=== PATIENT | female | born 1965 | race Caucasian/White ===

== ENCOUNTER 2017-04-07 12:21 | Emergency (ER) | payer SELFPAY ==
[~2017-04-07] VITALS: Ht 180.3 cm; Wt 98.0 kg
--- NOTE | 2017-04-07 12:21 | NUR ---
STATES " MY BLOOD SUGAR IS HIGH" 427 2 HRS AGO. STOPPED TAKING METFORMIN PER PATIENT. NAD NOTED. PT AAO X4, AMB WITH STEADY GAIT. RR EVEN AND UNLABORED. DR YARBROUGH AT BEDSIDE FOR EVAL.
--- NOTE | 2017-04-07 12:54 | NUR ---
BS 467 AT BEDSIDE
[2017-04-07 13:29] LABS: BASOPHILS % (AUTO) 0.3 % (0.0-2.0); EOSINOPHILS # (AUTO) 0.1 /CMM (0.0-0.7); EOSINOPHILS % (AUTO) 0.7 % (0.0-6.0); HEMATOCRIT 44 % (33-45); LYMPHOCYTES # (AUTO) 2.6 /CMM (0.8-4.8); MEAN CORPUSCULAR HEMOGLOBIN 31 PG (26.0-33.0); MEAN CORPUSCULAR HGB CONC 34 g/dl (31.0-36.0); MEAN CORPUSCULAR VOLUME 90 fL (82-100); MONOCYTES # (AUTO) 0.5 /CMM (0.1-1.30); MONOCYTES % (AUTO) 5.8 % (2.0-12.0); NEUTROPHILS # (AUTO) 5.4 /CMM (1.8-8.9); NEUTROPHILS % (AUTO) 63.2 % (43.0-81.0); PLATELET COUNT (AUTO) 225 /CMM (150-450); RDW COEFFICIENT OF VARIATION 12.8 (11.5-15.0); RED BLOOD CELL COUNT(AUTO) 4.87 MIL/uL (4.0-5.2); WHITE BLOOD COUNT (AUTO) 8.6 K/uL (4.3-11.0)
[2017-04-07] MEDS ORDERED: IV NS 0.9% 1,000 ML BAG IV ONE ×2 (13:30)
[2017-04-07 13:31] LABS: APPEARANCE,URINE CLEAR (CLEAR); BILIRUBIN,URINE NEGATIVE (NEGATIVE); BLOOD, URINE NEGATIVE Ery/uL (NEGATIVE); COLOR,URINE YELLOW (YELLOW); KETONES,URINE NEGATIVE (NEGATIVE); LEUKOCYTE ESTERASE ,URINE NEGATIVE (NEGATIVE); NITRITE, URINE NEGATIVE (NEGATIVE); PROTEIN,URINE NEGATIVE (NEGATIVE); UGLUCOSE 3+ mg/dL (NEGATIVE); UROBILINOGEN,URINE 0.2 EU/dL (0.2)
[2017-04-07 13:35] LABS: BACTERIA,URINE Rare /HPF (None Seen); RBC,URINE 0-2 /HPF (0-2); SQUAMOUS EPITHELIAL CELL,UR 0-2 /HPF (None Seen); WBC,URINE 0-2 /HPF (0-3)
[2017-04-07 13:36] LABS: PREGNANCY TEST URINE QUAL NEGATIVE (NEGATIVE)
[2017-04-07 13:36] LABS: POTASSIUM 3.8 mmol/L (3.5-5.1)
[2017-04-07 13:37] LABS: CALCIUM, SERUM 9.3 mg/dL (8.5-10.1)
[2017-04-07 13:40] LABS: BILIRUBIN,DIRECT 0.2 mg/dL (0.0-0.2); BILIRUBIN,TOTAL 0.8 mg/dL (0.2-1.0)
[2017-04-07 13:41] LABS: TOTAL PROTEIN, SERUM 7.6 g/dL (6.4-8.2)
[2017-04-07] MEDS ORDERED: INSULIN ASPART HUMALOG/NOVOLOG 100 UNIT/ML CARTRIDGE SQ ONE (14:00)
--- NOTE | 2017-04-07 14:08 | NUR ---
called pharmacy for miguelina
--- NOTE | 2017-04-07 14:17 | NUR ---
per dr colby dc pt after fluid bolus.
[2017-04-07 14:22] VITALS: BP 137/68
--- NOTE | 2017-04-07 15:08 | NUR ---
Patient discharged to home in stable condition. Written and verbal after care instructions given. Patient verbalizes understanding of instruction. IV removed. Catheter intact and site benign. Pressure and 4x4 applied to site. No bleeding noted. bs currently 380, improved from previous accucheck. ok per md to dc back home, pt states relief. prescriptions given, no further complaints.
== END 2017-04-07 15:08 | disposition home or self-care (01) ==
LOC: ER 12:26
DX: E11.65 Type 2 diabetes mellitus with hyperglycemia (principal); I10 Essential (primary) hypertension
CPT/HCPCS: 36415; 80048; 80076; 81001; 82962 ×2; 83690; 84703; 85025; 96372; 99285; A4606; J1815; J7030 ×3; Z7610; 81000-TC

== ENCOUNTER 2019-07-21 13:01 | Emergency (ER) | payer MEDICAID ==
[~2019-07-21] VITALS: Ht 180.3 cm; Wt 98.4 kg
--- NOTE | 2019-07-21 13:08 | NUR ---
"[id number] FROM [place] C/O DEPRESSION. SI +PLAN TO JUMP OFF A BRIDGE" PT TO BED15, AWAKE AND ALERT, -SOB, NAD NOTED, PENDING MD NIX
--- NOTE | 2019-07-21 13:18 | NUR ---
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
[2019-07-21 13:26] LABS: BASOPHILS # (AUTO) 0.1 /CMM (0.0-0.2); EOSINOPHILS % (AUTO) 0.6 % (0.0-6.0); HEMATOCRIT 47 % (33-45); HEMOGLOBIN 15.8 g/dL (11.5-14.8); LYMPHOCYTES # (AUTO) 3.1 /CMM (0.8-4.8); LYMPHOCYTES % (AUTO) 27.9 % (20.0-44.0); MEAN CORPUSCULAR HGB CONC 34 g/dl (31.0-36.0); MEAN CORPUSCULAR VOLUME 90 fL (82-100); MONOCYTES # (AUTO) 0.6 /CMM (0.1-1.30); MONOCYTES % (AUTO) 5.7 % (2.0-12.0); NEUTROPHILS # (AUTO) 7.1 /CMM (1.8-8.9); NEUTROPHILS % (AUTO) 64.8 % (43.0-81.0); PLATELET COUNT (AUTO) 359 /CMM (150-450); RED BLOOD CELL COUNT(AUTO) 5.15 MIL/uL (4.0-5.2)
--- NOTE | 2019-07-21 13:28 | NUR ---
PT WANDED. BELONGINGS PLACED IN SAFE LOCKER.
[2019-07-21 13:31] LABS: CALCIUM, SERUM 9.4 mg/dL (8.5-10.1); CARBON DIOXIDE 26 mmol/L (21-32); CHLORIDE 102 mmol/L (98-107); CREATININE 0.8 mg/dL (0.6-1.3); GLUCOSE 184 mg/dL (74-106); POTASSIUM 3.4 mmol/L (3.5-5.1); SODIUM SERUM 140 mmol/L (136-145); UREA NITROGEN, BLOOD 13 mg/dL (7-18)
[2019-07-21 13:37] LABS: ALANINE AMINOTRANSFERASE 29 U/L (12-78); ALBUMIN 4.4 g/dL (3.4-5.0); ALCOHOL, BLOOD < 3 mg/dL (0-0); ALKALINE PHOSPHATASE 74 U/L (46-116); ASPARTATE AMINOTRANSFERASE 26 U/L (15-37); BILIRUBIN,DIRECT 0.2 mg/dL (0.0-0.2); BILIRUBIN,TOTAL 0.8 mg/dL (0.2-1.0); TOTAL PROTEIN, SERUM 8.6 g/dL (6.4-8.2)
[2019-07-21 13:38] LABS: ACETAMINOPHEN 0 ug/ml (10-30); SALICYLATE 1.6 mg/dL (2.8-20.0)
[2019-07-21 13:47] LABS: APPEARANCE,URINE Slightly Cloudy (CLEAR); BILIRUBIN,URINE Negative (NEGATIVE); BLOOD, URINE Trace-intact Ery/uL (NEGATIVE); COLOR,URINE Yellow (YELLOW); KETONES,URINE 15 (NEGATIVE); LEUKOCYTE ESTERASE ,URINE Moderate (NEGATIVE); NITRITE, URINE Negative (NEGATIVE); PROTEIN,URINE Negative (NEGATIVE); UGLUCOSE Negative (NEGATIVE)
[2019-07-21 13:57] LABS: BACTERIA,URINE Moderate /HPF (None Seen); WBC,URINE 50-80 /HPF (0-3)
[2019-07-21 13:58] LABS: SQUAMOUS EPITHELIAL CELL,UR Moderate /HPF (None Seen)
--- NOTE | 2019-07-21 15:37 | NUR ---
FAXED CLINCALS AND FACESHEET TO [facility] AT [facility].
--- NOTE | 2019-07-21 16:26 | NUR ---
SPOKED TO [facility] [employer] PT INSURANCE NOT CONTRACTED.
--- NOTE | 2019-07-21 16:36 | NUR ---
CALLED [facility] [place], WAITING FOR CALL BACK.
--- NOTE | 2019-07-21 17:22 | NUR ---
SPOKE TO ART AT [facility], FAXED THE CLINICALS AND FACESHEET. WAITING FOR CONFIRMATION.
--- NOTE | 2019-07-21 17:54 | NUR ---
PATIENT ACCEPTED AT [facility] # FOR REPORT [phone] CALL NURSING JOSE ANTUNEZ FOR REPORT
--- NOTE | 2019-07-21 18:01 | NUR ---
REPORT GIVEN TO TULIO AT [facility]. AWAITING PT TRANSPORT.
--- NOTE | 2019-07-21 18:15 | NUR ---
ARRANGED BLS TRANSPORT TO [facility], TRIP NUMBER: [id number]
[2019-07-21 18:21] VITALS: BP 130/78
--- NOTE | 2019-07-21 19:32 | NUR ---
PT TRANSPORTED TO [facility], DENIES SOB, NAD NOTED, PT LEFT IN STABLE CONDITION, VSS.ALL BELONGING WITH PT
== END 2019-07-21 19:35 ==
LOC: ER 13:03
DX: F32.9 Major depressive disorder, single episode, unspecified (principal); I10 Essential (primary) hypertension; E11.9 Type 2 diabetes mellitus without complications; F17.200 Nicotine dependence, unspecified, uncomplicated; Z59.0 Homelessness
CPT/HCPCS: 36415; 80048; 80076; 80305; 80307; 80329; 81001; 85025; 87086; 99285; G0480; 81000-TC

== ENCOUNTER 2021-06-16 16:06 | Emergency (ER) | payer MEDICAID ==
[~2021-06-16] VITALS: Ht 180.3 cm; Wt 96.2 kg
--- NOTE | 2021-06-16 16:50 | NUR ---
TO ER BED 7, C/O FLANK PAIN AND DYSURIA X1WEEK, AAOX3, BREATHING EVEN AND NON LABORED, CONNECTED TO MONITOR, SALINE LOCK ESTABLISHED, BLOOD DRAWNA AND SENT TO LAB
[2021-06-16] MEDS ORDERED: IV NS 0.9% 1,000 ML BAG IV ONE (17:00)
[2021-06-16] MEDS ORDERED: ONDANSETRON HCL/PF 4 MG/2 ML VIAL IVP ONE (17:00)
[2021-06-16] MEDS ORDERED: KETOROLAC TROMETHAMINE INJ 30 MG/ML VIAL IV ONE (17:00)
[2021-06-16] MEDS ORDERED: ONDANSETRON HCL/PF 4 MG/2 ML VIAL ONE (17:17)
[2021-06-16] MEDS ORDERED: KETOROLAC TROMETHAMINE INJ 30 MG/ML VIAL ONE (17:17)
[2021-06-16 17:31] LABS: BILIRUBIN,URINE NEGATIVE (NEGATIVE); COLOR,URINE YELLOW (YELLOW); LEUKOCYTE ESTERASE ,URINE SMALL (NEGATIVE); NITRITE, URINE NEGATIVE (NEGATIVE); PROTEIN,URINE NEGATIVE (NEGATIVE); UGLUCOSE NEGATIVE (NEGATIVE); UROBILINOGEN,URINE 0.2 EU/dL (0.2)
[2021-06-16 17:38] LABS: BASOPHILS # (AUTO) 0.1 K/uL (0.0-0.2); BASOPHILS % (AUTO) 0.7 % (0.0-2.0); EOSINOPHILS % (AUTO) 1.9 % (0.0-6.0); HEMATOCRIT 41 % (33-45); LYMPHOCYTES # (AUTO) 4.2 K/uL (0.8-4.8); MEAN CORPUSCULAR HGB CONC 34 g/dl (31.0-36.0); MEAN CORPUSCULAR VOLUME 92 fL (82-100); MONOCYTES # (AUTO) 0.6 K/uL (0.1-1.30); MONOCYTES % (AUTO) 6.9 % (2.0-12.0); NEUTROPHILS # (AUTO) 3.8 K/uL (1.8-8.9); NEUTROPHILS % (AUTO) 43.5 % (43.0-81.0); PLATELET COUNT (AUTO) 259 K/uL (150-450); RED BLOOD CELL COUNT(AUTO) 4.49 MIL/uL (4.0-5.2); WHITE BLOOD COUNT (AUTO) 8.8 K/uL (4.3-11.0)
[2021-06-16 17:40] LABS: BACTERIA,URINE 1+ /HPF (None Seen); RBC,URINE 0-2 /HPF (0-2)
[2021-06-16 17:44] LABS: CALCIUM, SERUM 8.7 mg/dL (8.5-10.1); CREATININE 0.7 mg/dL (0.6-1.3); POTASSIUM 3.6 mmol/L (3.5-5.1)
[2021-06-16 17:49] LABS: ALBUMIN 4.1 g/dL (3.4-5.0); BILIRUBIN,DIRECT 0.1 mg/dL (0.0-0.2); BILIRUBIN,TOTAL 0.5 mg/dL (0.2-1.0); TOTAL PROTEIN, SERUM 7.9 g/dL (6.4-8.2)
[2021-06-16] MEDS ORDERED: CEFTRIAXONE 1GM BAG (ER ONLY) 1 GM/50 ML PIGGYBACK IV ONE (18:00)
[2021-06-16] MEDS ORDERED: CEFTRIAXONE 1GM BAG (ER ONLY) 50 ML IV ONE (18:05)
[2021-06-16] MEDS ORDERED: POLY17PO4 PO (18:39)
[2021-06-16] MEDS ORDERED: CEPH500C2 PO (18:39)
[2021-06-16] MEDS ORDERED: IBUP-1957 PO (18:39)
[2021-06-16 19:07] VITALS: BP 113/78
--- NOTE | 2021-06-16 19:07 | NUR ---
IV removed. Catheter intact and site benign. Pressure and 4x4 applied to site. No bleeding noted.Patient discharged to home in stable condition. Written and verbal after care instructions given. Patient verbalizes understanding of instruction.
== END 2021-06-16 19:08 | disposition home or self-care (01) ==
LOC: ER 16:11
DX: N39.0 Urinary tract infection, site not specified (principal); K59.00 Constipation, unspecified; I10 Essential (primary) hypertension; E11.9 Type 2 diabetes mellitus without complications; F17.200 Nicotine dependence, unspecified, uncomplicated; Z88.6 Allergy status to analgesic agent
CPT/HCPCS: 36415; 74176; 80048; 80076; 81001; 85025; 87077; 87086; 87186; 96361; 96374; 96375; 99284; J0696; J1885; J2405; J7030

== ENCOUNTER 2021-08-18 18:02 | Emergency (ER) | payer MEDICAID ==
[~2021-08-18] VITALS: Ht 172.7 cm; Wt 83.9 kg
[~2021-08-18 18:02] MED LIST: CEPH500C2 PO; IBUP-1957 PO; POLY17PO4 PO
--- NOTE | 2021-08-18 19:15 | NUR ---
LUIS FROM FOR [facility]. DENIED SI/HI. ALERT, AND OX4. AMBULATORY TO BED 15. VSS. WILL CONT TO MONITOR,
[2021-08-18 20:50] LABS: BASOPHILS # (AUTO) 0.1 K/uL (0.0-0.2); BASOPHILS % (AUTO) 0.8 % (0.0-2.0); EOSINOPHILS % (AUTO) 0.7 % (0.0-6.0); HEMATOCRIT 41 % (33-45); HEMOGLOBIN 13.9 g/dL (11.5-14.8); LYMPHOCYTES # (AUTO) 3.8 K/uL (0.8-4.8); LYMPHOCYTES % (AUTO) 32.6 % (20.0-44.0); MEAN CORPUSCULAR HGB CONC 34 g/dl (31.0-36.0); MEAN CORPUSCULAR VOLUME 91 fL (82-100); MONOCYTES # (AUTO) 0.8 K/uL (0.1-1.30); MONOCYTES % (AUTO) 6.5 % (2.0-12.0); NEUTROPHILS # (AUTO) 6.9 K/uL (1.8-8.9); NEUTROPHILS % (AUTO) 59.4 % (43.0-81.0); PLATELET COUNT (AUTO) 286 K/uL (150-450); RED BLOOD CELL COUNT(AUTO) 4.55 MIL/uL (4.0-5.2); WHITE BLOOD COUNT (AUTO) 11.6 K/uL (4.3-11.0)
[2021-08-18 21:09] LABS: CALCIUM, SERUM 9.3 mg/dL (8.5-10.1); CARBON DIOXIDE 28 mmol/L (21-32); CHLORIDE 99 mmol/L (98-107); CREATININE 1.2 mg/dL (0.6-1.3); GLUCOSE 127 mg/dL (74-106); POTASSIUM 3.2 mmol/L (3.5-5.1); SODIUM SERUM 138 mmol/L (136-145); UREA NITROGEN, BLOOD 18 mg/dL (7-18)
[2021-08-18 21:15] LABS: ALANINE AMINOTRANSFERASE 22 U/L (12-78); ALBUMIN 4.2 g/dL (3.4-5.0); ALCOHOL, BLOOD < 3 mg/dL (0-0); ALKALINE PHOSPHATASE 76 U/L (46-116); ASPARTATE AMINOTRANSFERASE 15 U/L (15-37); BILIRUBIN,DIRECT 0.1 mg/dL (0.0-0.2); BILIRUBIN,TOTAL 0.7 mg/dL (0.2-1.0); TOTAL PROTEIN, SERUM 7.9 g/dL (6.4-8.2)
[2021-08-18 21:16] LABS: ACETAMINOPHEN 0 ug/ml (10-30)
[2021-08-18] MEDS ORDERED: POTASSIUM CHLORIDE 20 MEQ TAB.PRT.SR PO ONE ×2 (22:30→23:55)
[2021-08-18] MEDS ORDERED: POTASSIUM CHLORIDE 10 MEQ TABLET.SA ONE (23:55)
[2021-08-19 02:30] LABS: BILIRUBIN,URINE NEGATIVE (NEGATIVE); COLOR,URINE LIGHT YELLOW (YELLOW); PROTEIN,URINE NEGATIVE (NEGATIVE); UGLUCOSE NEGATIVE (NEGATIVE)
[2021-08-19 02:31] LABS: LEUKOCYTE ESTERASE ,URINE NEGATIVE (NEGATIVE); NITRITE, URINE NEGATIVE (NEGATIVE); UROBILINOGEN,URINE 0.2 EU/dL (0.2)
[2021-08-19 02:36] LABS: BACTERIA,URINE Few /HPF (None Seen); SQUAMOUS EPITHELIAL CELL,UR Few /HPF (None Seen)
[2021-08-19 02:37] LABS: CALCIUM CARBONATE CRYSTALS,UR Moderate /HPF (None Seen); CALCIUM OXALATE CRYSTALS,UR Few /HPF (None Seen)
--- NOTE | 2021-08-19 06:00 | NUR ---
[facility] at bed side
[2021-08-19] MEDS ORDERED: LORA-259 PO ×2 (07:00→07:02)
--- NOTE | 2021-08-19 07:08 | NUR ---
PT REQUESTED RX FOR ANXIETY. MD MADE AWARE AND RX WAS PROVIDED TO THE PT.
--- NOTE | 2021-08-19 07:08 | NUR ---
Patient given written and verbal discharge instructions. Patient verbalizes understanding of instructions. Patient is ambulatory with steady gait. Refuses offer of group home placement. Patient given list of available shelters in surrounding area. Pt ambulatory with a steady gait
[2021-08-19 07:15] VITALS: BP 132/76
== END 2021-08-19 07:15 | disposition home or self-care (01) ==
LOC: ER 18:04
DX: F29 Unspecified psychosis not due to a substance or known physiological condition (principal); I10 Essential (primary) hypertension; E11.9 Type 2 diabetes mellitus without complications; Z88.6 Allergy status to analgesic agent
CPT/HCPCS: 36415; 71045-TC; 80048-TC; 80076-TC; 81001; 84484-TC; 85025-TC; G0480